=== PATIENT | female | born 1995 | race American Indian/Alaskan Native ===

== ENCOUNTER 2022-01-27 13:20 | Inpatient (IN) | payer BC, MEDICAID ==
[2022-01-27] MEDS ORDERED: Sodium Chloride 0.9% 10 ML Syringe FLUSH PRN (13:23)
[2022-01-27] MEDS ORDERED: Potassium Chloride 20 MEQ in Premix Bag 1 BAG IV PRN ×4 (13:23)
[2022-01-27] MEDS ORDERED: Sodium Phosphate 60 MMOLE in Sodium Chloride 0.9% 250 ML IV PRN (13:23)
[2022-01-27] MEDS ORDERED: Sodium Chloride 0.9% 2,000 ML IV PRN (13:23)
[2022-01-27] MEDS ORDERED: Potassium Chloride 10% 20 MEQ/15 ML Soln 15 ML UD Cup PO PRN ×3 (13:23)
[2022-01-27] MEDS ORDERED: Magnesium Sulfate/Water 50 ML IV PRN (13:23)
[2022-01-27] MEDS ORDERED: Acetaminophen 325 MG Tab PO PRN (13:23)
[2022-01-27] MEDS ORDERED: 50% Dextrose in Water 50 ML Syringe IVPUSH PRN ×2 (13:23→17:31)
[2022-01-27] MEDS ORDERED: Insulin Regular in 0.9 % NACL 100 ML IV SCH ×2 (13:30→14:15)
[2022-01-27] MEDS: Dextrose 5%-0.45% NaCl 1,000 ML IV PRN ×2 (13:43→18:30)
[2022-01-27] MEDS: Ondansetron 4 MG/2 ML SDV IV PRN ×2 (13:54→19:30)
[2022-01-27] MEDS ORDERED: Nicotine Polacrilex 2 MG Gum CHEW PRN (13:59)
[2022-01-27] MEDS ORDERED: Potassium Chloride 20 MEQ, Lidocaine 1% 2 ML in Sodium Chloride 0.9% 100 ML IV ONE (14:30)
[2022-01-27] MEDS: Nicotine 14 MG/24 Hr Patch TRDERM SCH (14:36)
[2022-01-27 15:43] LABS: HEMOGLOBIN A1C 12.6 % (4.5-6.2)
[2022-01-27] MEDS ORDERED: Glucagon,Human Recombinant 1 MG Vial IM PRN (17:31)
[2022-01-27] MEDS: LORazepam 0.5 MG Tab PO PRN ×2 (17:54→21:53)
[2022-01-27] MEDS ORDERED: Lidocaine 1% 5 ML VIAL ONE (18:41)
[2022-01-27] MEDS ORDERED: Potassium Chloride 20 MEQ Tab.ER PO ONE (18:55)
[2022-01-27] MEDS ORDERED: 50% Dextrose in Water 50 ML Syringe IV PRN (18:55)
[2022-01-27] MEDS ORDERED: Glucose Gel 15 GM in 37.5 GM Tube PO PRN (18:55)
[2022-01-27] MEDS ORDERED: Metoclopramide 10 MG/2 ML SDV ONE (19:38)
[2022-01-27] MEDS ORDERED: Metoclopramide 10 MG Tab ONE (19:50)
[2022-01-27] MEDS: Metoclopramide 10 MG Tab PO SCH ×2 (20:04→21:41)
[2022-01-27] MEDS: Amitriptyline 25 MG Tab PO SCH (21:53)
[2022-01-27] MEDS: Insulin Glargine,Human Rec. Analog 100 Units/ML 3 ML Pen SUBCUT SCH (22:03)
[2022-01-27] MEDS: Insulin Lispro 100 Unit/ML 3 ML KwikPen SUBCUT SCH (22:05)
[2022-01-28] MEDS: Metoclopramide 10 MG Tab PO SCH ×4 (06:50→21:50)
[2022-01-28] MEDS: Insulin Lispro 100 Unit/ML 3 ML KwikPen SUBCUT SCH ×4 (07:48→21:53)
[2022-01-28] MEDS: Insulin Glargine,Human Rec. Analog 100 Units/ML 3 ML Pen SUBCUT SCH ×2 (08:40→21:51)
[2022-01-28] MEDS: LORazepam 0.5 MG Tab PO PRN (08:44)
[2022-01-28] MEDS: Nicotine 14 MG/24 Hr Patch TRDERM SCH (08:46)
[2022-01-28] MEDS: Dextrose 5%-0.45% NaCl 1,000 ML IV SCH ×2 (09:25→16:10)
[2022-01-28] MEDS: diphenhydrAMINE 25 MG Cap PO PRN ×3 (11:26→21:50)
[2022-01-28] MEDS: Amitriptyline 25 MG Tab PO SCH (21:50)
[2022-01-29] MEDS: Dextrose 5%-0.45% NaCl 1,000 ML IV SCH ×2 (00:12→08:19)
[2022-01-29] MEDS: LORazepam 0.5 MG Tab PO PRN (01:38)
[2022-01-29] MEDS: Metoclopramide 10 MG Tab PO SCH ×2 (06:59→09:54)
[2022-01-29] MEDS: Insulin Lispro 100 Unit/ML 3 ML KwikPen SUBCUT SCH (08:04)
[2022-01-29] MEDS: Insulin Glargine,Human Rec. Analog 100 Units/ML 3 ML Pen SUBCUT SCH (08:06)
[2022-01-29] MEDS: Nicotine 14 MG/24 Hr Patch TRDERM SCH (08:10)
[2022-01-29 11:05] VITALS: BP 121/71; PULSE 95
== END 2022-01-29 11:50 | disposition home or self-care (01) | DRG 639 ==
LOC: JP.ICU 13:20
PROVIDERS: ADMIT Hospitalist; ATTEND Hospitalist
DX: E10.10 Type 1 diabetes mellitus with ketoacidosis without coma (principal); R11.15 Cyclical vomiting syndrome unrelated to migraine; E86.0 Dehydration; Z91.09 Other allergy status, other than to drugs and biological substances
CPT/HCPCS: 36415; 80048; 81001; 82947; 83036; 83735; 84100; 84703; 85025; 99222; 99232; 99238; A9270-GY; J1815; J1815-GY; J2405; J3475; J3480; J3490; J7030; J7042

== ENCOUNTER 2022-06-02 21:06 | Emergency (ER) | payer MEDICAID ==
[2022-06-02] MEDS ORDERED: Metoclopramide 10 MG/2 ML SDV IVPUSH ONE (21:38)
[2022-06-02] MEDS ORDERED: Sodium Chloride 0.9% 1,000 ML IV SCH (23:00)
[2022-06-02 23:02] VITALS: BP 149/96; PULSE 98
[2022-06-02] MEDS ORDERED: Prochlorperazine 5 MG in Sodium Chloride 0.9% 50 ML IV ONE (23:28)
[2022-06-03] MEDS ORDERED: Metoclopramide 10 MG Tab PO ONE (01:14)
== END 2022-06-03 05:12 | disposition home or self-care (01) ==
LOC: JP.ED 21:06
DX: O99.281 Endocrine, nutritional and metabolic diseases complicating pregnancy, first trimester (principal); E86.0 Dehydration; O21.9 Vomiting of pregnancy, unspecified; O24.011 Pre-existing type 1 diabetes mellitus, in pregnancy, first trimester; E10.8 Type 1 diabetes mellitus with unspecified complications; Z91.048 Other nonmedicinal substance allergy status; Z3A.12 12 weeks gestation of pregnancy
CPT/HCPCS: 36415; 80048; 81001; 83735; 96361; 96365; 96375; 99284; A9270; J0780; J2765; J3490; J7030